=== PATIENT | female | born 1965 | race Caucasian/White ===

== ENCOUNTER 2017-08-26 22:36 | Emergency (ER) | payer MEDICARE, MEDICAID ==
[~2017-08-26] VITALS: Ht 175.3 cm; Wt 73.0 kg
[2017-08-26] MEDS ORDERED: MORP60CP14 PO (23:16)
[2017-08-26] MEDS ORDERED: METH-360 PO (23:39)
[2017-08-26] MEDS: diazepam 5mg tablet PO ONE (23:50)
[2017-08-26] MEDS: ketorolac tromethamine 15mg/ml inj. IM ONE (23:51)
[2017-08-27 00:04] VITALS: BP 142/80
== END 2017-08-27 00:12 | disposition home or self-care (01) ==
LOC: ER 22:36
DX: G89.29 Other chronic pain (principal); M54.2 Cervicalgia; G44.209 Tension-type headache, unspecified, not intractable; F17.200 Nicotine dependence, unspecified, uncomplicated; Z79.899 Other long term (current) drug therapy
CPT/HCPCS: 96372; 99284; J1885; L0172

== ENCOUNTER 2018-03-12 00:24 | Emergency (ER) | payer MEDICARE, MEDICAID ==
[~2018-03-12] VITALS: Ht 152.4 cm; Wt 77.2 kg
[~2018-03-12 00:24] MED LIST: METH-360 PO; MORP60CP14 PO
[2018-03-12] MEDS ORDERED: TETanus/Pertussis (Acell)/Diphther VAC/PF (Tdap-Adult) 0.5ml syringe IM ONE (00:55)
[2018-03-12] MEDS ORDERED: MUPI22OI30 TOP (00:55)
[2018-03-12] MEDS ORDERED: HYDROcodone/acetaminophen 10/325mg tab PO ONE (00:55)
[2018-03-12] MEDS ORDERED: ondansetron 4mg rapidly disintigrating tab PO ONE (00:55)
[2018-03-12] MEDS ORDERED: bacitracin 15gm ointment TP ONE (00:55)
[2018-03-12] MEDS ORDERED: ibuprofen tablet 400 MG TABLET PO ONE (00:55)
[2018-03-12] MEDS ORDERED: HYDR-3965 PO (00:56)
[2018-03-12] MEDS ORDERED: MELO-100 PO (00:56)
[2018-03-12 01:51] VITALS: BP 158/94
== END 2018-03-12 01:57 | disposition home or self-care (01) ==
LOC: ER 00:25
DX: T22.251A Burn of second degree of right shoulder, initial encounter (principal); T20.27XA Burn of second degree of neck, initial encounter; G89.29 Other chronic pain; Z79.2 Long term (current) use of antibiotics; Z79.899 Other long term (current) drug therapy; X19.XXXA Contact with other heat and hot substances, initial encounter; Y93.89 Activity, other specified; Y92.89 Other specified places as the place of occurrence of the external cause; Y99.8 Other external cause status
CPT/HCPCS: 16020; 90471; 90715; 99284

== ENCOUNTER 2018-11-21 00:42 | Emergency (ER) | payer MEDICARE, MEDICAID ==
[~2018-11-21] VITALS: Ht 175.3 cm; Wt 71.3 kg
[~2018-11-21 00:42] MED LIST changes: +ALBU6.7H INH; +CEPH-571 PO; +GUAI120015 PO; +MELO-100 PO
[2018-11-21] MEDS ORDERED: ketorolac trometh inj. 60 MG/2 ML VIAL IM ONE (02:20)
--- NOTE | 2018-11-21 02:34 | NUR ---
FAXED OVER RELEASE OF MEDICAL PAPPER WORK TO [facility] AT 02:33
[2018-11-21 03:31] VITALS: BP 140/93
== END 2018-11-21 05:26 | disposition home or self-care (01) ==
LOC: ER 00:43
DX: G89.29 Other chronic pain (principal); M54.9 Dorsalgia, unspecified; F17.200 Nicotine dependence, unspecified, uncomplicated; Z98.890 Other specified postprocedural states; Z79.899 Other long term (current) drug therapy
CPT/HCPCS: 96372; 99283; J1885

== ENCOUNTER → 2018-12-28 | Emergency (ER) | payer MEDICARE, MEDICAID ==
[~2018-12-28] VITALS: Ht 175.3 cm; Wt 86.0 kg
[2018-12-28 20:24] LABS: BASOPHILS % (AUTO) 0.4 % (0-1); EOSINOPHILS # (AUTO) 0.1 X10'3 (0-0.9); HEMATOCRIT 38.3 % (35.0-45.0); LYMPHOCYTES # (AUTO) 2.5 X10'3 (1.1-4.8); LYMPHOCYTES % (AUTO) 36.8 % (21-51); MEAN CORPUSCULAR HEMOGLOBIN 30.2 PG (27.0-31.0); MEAN CORPUSCULAR VOLUME 88.7 FL (78-98); MEAN PLATELET VOLUME 6.9 FL (7.4-10.4); MONOCYTES # (AUTO) 0.6 X10'3 (0-0.9); MONOCYTES % (AUTO) 8.5 % (2-12); NEUTROPHILS # (AUTO) 3.5 X10'3 (1.8-7.7); NEUTROPHILS % (AUTO) 52.3 % (42-75); PLATELET COUNT 336 X10'3 (140-440); RED BLOOD COUNT 4.32 X10'6 (4.20-5.60); WHITE BLOOD COUNT 6.7 X10'3 (4.5-11.0)
[2018-12-28 20:36] LABS: PARTIAL THROMBOPLASTIN TIME 29 SECONDS (22-32)
[2018-12-28 20:37] LABS: ALANINE AMINOTRANSFERASE 24 U/L (12-78); ALBUMIN 3.6 G/DL (3.4-5.0); ALBUMIN/GLOBULIN RATIO 0.9 (1.1-1.5); ALKALINE PHOSPHATASE 93 IU/L (46-116); ANION GAP 6 (8-16); ASPARTATE AMINO TRANSFERASE 20 U/L (10-37); BILIRUBIN,TOTAL 0.3 MG/DL (0.1-1.0); BLOOD UREA NITROGEN 11 MG/DL (7-18); BUN/CREATININE RATIO 12.8 (6.6-38.0); CHLORIDE 106 MMOL/L (99-107); CREATININE 0.86 MG/DL (0.40-0.90); GLUCOSE 103 MG/DL (70-104); POTASSIUM 4.4 MMOL/L (3.5-5.1); SODIUM 140 MMOL/L (135-145); TOTAL CARBON DIOXIDE 27.9 MMOL/L (24-32); TOTAL PROTEIN 7.6 G/DL (6.4-8.2); eGFR 69 ML/MIN
--- NOTE | 2018-12-28 21:07 | NUR ---
pt asking to go outside and visit with family. Advised her that she needed to wait in the room as we don't know when the MD will be in to see her. Asked if she would like me to have her family come to her in the room and she states, "no they are outside in the parking lot" -
[2018-12-28 23:37] VITALS: BP 160/92
== END | disposition left against medical advice (07) ==
LOC: ER 19:51
DX: R06.00 Dyspnea, unspecified (principal); R19.7 Diarrhea, unspecified; G89.29 Other chronic pain; L90.5 Scar conditions and fibrosis of skin; F17.200 Nicotine dependence, unspecified, uncomplicated; M54.2 Cervicalgia; Z79.2 Long term (current) use of antibiotics; Z79.899 Other long term (current) drug therapy; Z98.890 Other specified postprocedural states
CPT/HCPCS: 36415; 70491; 71045; 71260; 80053; 84484; 85025; 85610; 85730; 93005; 99284

== ENCOUNTER 2019-04-10 14:13 | Inpatient (IN) | payer MEDICARE, MEDICAID ==
[~2019-04-10] VITALS: Ht 175.3 cm; Wt 83.0 kg
[~2019-04-10 14:13] MED LIST changes: -ALBU6.7H INH; +ALBU6.7H9 INH
[2019-04-10] MEDS ORDERED: ondansetron/PF 4mg/2ml inj IV ONE (14:50)
[2019-04-10] MEDS ORDERED: morphine 4 MG/ML inj SYRINge IV ONE ×3 (14:50→16:05)
[2019-04-10 15:31] LABS: BASOPHILS % (AUTO) 0.2 % (0-1); EOSINOPHILS # (AUTO) 0.1 X10'3 (0-0.9); EOSINOPHILS % (AUTO) 0.8 % (0-6); HEMATOCRIT 40.4 % (35.0-45.0); HEMOGLOBIN 13.9 g/dl (12.0-16.0); LYMPHOCYTES # (AUTO) 2.9 X10'3 (1.1-4.8); LYMPHOCYTES % (AUTO) 27.8 % (21-51); MEAN CORPUSCULAR HEMOGLOBIN 30.8 PG (27.0-31.0); MEAN CORPUSCULAR HGB CONC 34.4 g/dL (33.0-36.5); MEAN CORPUSCULAR VOLUME 89.7 FL (78-98); MEAN PLATELET VOLUME 7.1 FL (7.4-10.4); MONOCYTES # (AUTO) 0.9 X10'3 (0-0.9); MONOCYTES % (AUTO) 8.4 % (2-12); NEUTROPHILS # (AUTO) 6.5 X10'3 (1.8-7.7); NEUTROPHILS % (AUTO) 62.8 % (42-75); PLATELET COUNT 330 X10'3 (140-440); RED CELL DISTRIBUTION WIDTH 13.5 % (11.5-14.5); WHITE BLOOD COUNT 10.4 X10'3 (4.5-11.0)
[2019-04-10 15:39] LABS: ALANINE AMINOTRANSFERASE 18 U/L (12-78); ALBUMIN 3.6 G/DL (3.4-5.0); ALBUMIN/GLOBULIN RATIO 0.9 (1.1-1.5); ALKALINE PHOSPHATASE 81 IU/L (46-116); ANION GAP 9 (8-16); ASPARTATE AMINO TRANSFERASE 11 U/L (10-37); BILIRUBIN,TOTAL 0.2 MG/DL (0.1-1.0); BLOOD UREA NITROGEN 13 MG/DL (7-18); BUN/CREATININE RATIO 16.5 (6.6-38.0); CALCIUM 8.9 MG/DL (8.5-10.1); CHLORIDE 105 MMOL/L (99-107); CREATININE 0.79 MG/DL (0.40-0.90); GLUCOSE 94 MG/DL (70-104); POTASSIUM 3.6 MMOL/L (3.5-5.1); SODIUM 141 MMOL/L (135-145); TOTAL CARBON DIOXIDE 26.8 MMOL/L (24-32); TOTAL PROTEIN 7.7 G/DL (6.4-8.2); eGFR 76 ML/MIN
[2019-04-10 15:42] LABS: PARTIAL THROMBOPLASTIN TIME 26 SECONDS (22-32)
[2019-04-10] MEDS ORDERED: HYDROcodone/acetaminophen 5mg/325mg tablet PO PRN (15:45)
[2019-04-10] MEDS ORDERED: acetaminophen 650mg rectal suppository RC PRN (15:45)
[2019-04-10] MEDS ORDERED: magnesium 4gm in 100ml NS 100 ML IV PRN (15:45)
[2019-04-10] MEDS ORDERED: potassium Cl 20 mEq SR tablet PO PRN ×2 (15:45)
[2019-04-10] MEDS ORDERED: mag hydrox/Alum hydrox/simeth 30ml oral suspension PO PRN (15:45)
[2019-04-10] MEDS ORDERED: bisacodyl 10mg suppository rectal RC PRN (15:45)
[2019-04-10] MEDS ORDERED: acetaminophen 325mg tablet PO PRN ×2 (15:45)
[2019-04-10] MEDS ORDERED: diphenhydrAMINE 25mg capsule PO PRN (15:45)
[2019-04-10] MEDS: K and/or MAG REPLACEMENT MC SCH (15:45)
[2019-04-10] MEDS ORDERED: morphine 2 MG/ML inj. syringe IV PRN ×2 (15:45)
[2019-04-10] MEDS ORDERED: magnesium 2GM in 50ml NS 50 ML IV PRN (15:45)
[2019-04-10] MEDS ORDERED: potassium CL 10mEq/100ml bag 100 ML IV PRN ×2 (15:45)
[2019-04-10] MEDS ORDERED: magnesium Cl slow-release 64mg tablet PO PRN (15:45)
[2019-04-10] MEDS ORDERED: magnesium hydroxide 30ml (MOM) UD suspension PO PRN (15:45)
[2019-04-10] MEDS ORDERED: diphenhydrAMINE 50 mg/ml inj IV PRN (15:45)
[2019-04-10 16:13] LABS: HEMOGLOBIN A1C 5.3 % (4.5-6.2)
--- NOTE | 2019-04-10 16:38 | NUR ---
Patient in room ED 12. I have received report from Payal in the ED and had the opportunity to ask questions and assume patient care.
[2019-04-10] MEDS: HYDROcodone/acetaminophen 10/325mg tab PO PRN ×2 (17:20→21:18)
--- NOTE | 2019-04-10 17:30 | NUR ---
Pt arrived on the floor, very painful
[2019-04-10 17:34] VITALS: BP 156/90
[2019-04-10] MEDS: HYDROmorphone 1 mg/ml syringe IV PRN ×3 (17:47→22:41)
[2019-04-10 18:00] VITALS: BP 156/90
[2019-04-10] MEDS ORDERED: OMEP20CA11 PO (18:06)
[2019-04-10] MEDS ORDERED: MORP15TA PO (18:06)
[2019-04-10] MEDS ORDERED: MORP60CA18 PO (18:06)
[2019-04-10] MEDS ORDERED: GABA-532 PO (18:06)
[2019-04-10] MEDS ORDERED: MELO-102 PO (18:06)
[2019-04-10] MEDS ORDERED: DULO-31 PO (18:06)
--- NOTE | 2019-04-10 18:29 | NUR ---
Problems reprioritized. Patient report given, questions answered & plan of care reviewed with Mary Alice.
--- NOTE | 2019-04-10 18:30 | NUR ---
Received report from Anastasia BEATTY. assumed care of patient.
[2019-04-10] MEDS: dextrose 5%-normal saline 1,000 ML IV SCH (18:59)
[2019-04-10] MEDS: heparin, porcine 5000 units/ml vial SQ SCH (19:43)
--- NOTE | 2019-04-10 20:00 | NUR ---
As I was darting patient, and taking inventory of patient's belongings found a box of cigarettes. Educated the patient and told her she could not have these on the floor. Charge nurse, Pallavi BEATTY, was notified. pt stated that son would come spanish moss picker the cigarettes in the morning. Placed the box in patients closet, on top shelf out of reach for the patient. will continue to monitor patient.
[2019-04-10] MEDS: ondansetron/PF 4mg/2ml inj IV PRN (20:44)
[2019-04-10] MEDS: nicotine 14mg patch - 24hr TD SCH (20:44)
[2019-04-10] MEDS ORDERED: temazepam 15mg capsule PO PRN (21:00)
[2019-04-10 22:00] VITALS: BP 130/85
[2019-04-11] VITALS (17 sets, daily range): BP systolic 79–135; BP diastolic 55–82
--- NOTE | 2019-04-11 | NUR ---
Bladder scanned patient. Only 250 ml in bladder. will continue to monitor patient.
[2019-04-11] MEDS: HYDROmorphone 1 mg/ml syringe IV PRN ×6 (00:13→23:09)
[2019-04-11] MEDS ORDERED: proCHLORperazine 10 MG/2 ml inj IV PRN ×2 (00:25→08:00)
--- NOTE | 2019-04-11 02:00 | NUR ---
Noticed 2 circular healing scabs on patients right collar bone, open to air. No drainage. present on admission. see chart for pictures.
[2019-04-11] MEDS: HYDROcodone/acetaminophen 10/325mg tab PO PRN ×2 (02:30→15:08)
[2019-04-11 03:16] LABS: CLARITY,URINE CLEAR (Clear); COLOR,URINE YELLOW (Yellow); GLUCOSE, URINE NEGATIVE (Neg); KETONES,URINE NEGATIVE (Neg); LEUKOCYTE ESTERASE ,URINE NEGATIVE (Neg); NITRITES, URINE NEGATIVE (Neg); OCCULT BLOOD,URINE NEGATIVE (Neg); PH,URINE 5.5 (4.8-8.0); PROTEIN,URINE NEGATIVE (Neg); UROBILINOGEN,URINE 0.2 E.U/dL (0.2-1.0)
[2019-04-11 03:20] LABS: UA COLLECTION TYPE FOLEY CATH
[2019-04-11 03:31] LABS: URINE AMPHETAMINE SCREEN NEGATIVE (Neg); URINE BARBITUATE SCREEN NEGATIVE (Neg); URINE BENZODIAZEPINES SCREEN NEGATIVE (Neg); URINE CANNABINOID SCREEN NEGATIVE (Neg); URINE COCAINE SCREEN NEGATIVE (Neg); URINE METHADONE SCREEN NEGATIVE (Neg); URINE OPIATE SCREEN POSITIVE (Neg); URINE PHENCYCLIDINE SCREEN NEGATIVE (Neg)
[2019-04-11] MEDS: dextrose 5%-normal saline 1,000 ML IV SCH ×2 (04:28→14:35)
[2019-04-11 05:19] LABS: URINE HCG NEGATIVE (NEG)
[2019-04-11 05:40] LABS: BASOPHILS % (AUTO) 0.1 % (0-1); EOSINOPHILS % (AUTO) 0.5 % (0-6); HEMATOCRIT 35.8 % (35.0-45.0); HEMOGLOBIN 12.5 g/dl (12.0-16.0); LYMPHOCYTES % (AUTO) 22.4 % (21-51); MEAN CORPUSCULAR HEMOGLOBIN 31.8 PG (27.0-31.0); MEAN CORPUSCULAR HGB CONC 34.8 g/dL (33.0-36.5); MEAN CORPUSCULAR VOLUME 91.6 FL (78-98); MEAN PLATELET VOLUME 7.4 FL (7.4-10.4); MONOCYTES # (AUTO) 0.8 X10'3 (0-0.9); MONOCYTES % (AUTO) 8.9 % (2-12); NEUTROPHILS # (AUTO) 5.9 X10'3 (1.8-7.7); NEUTROPHILS % (AUTO) 68.1 % (42-75); PLATELET COUNT 285 X10'3 (140-440); RED BLOOD COUNT 3.91 X10'6 (4.20-5.60); RED CELL DISTRIBUTION WIDTH 13.6 % (11.5-14.5); WHITE BLOOD COUNT 8.7 X10'3 (4.5-11.0)
[2019-04-11 06:06] LABS: ALANINE AMINOTRANSFERASE 15 U/L (12-78); ALBUMIN 3.5 G/DL (3.4-5.0); ALKALINE PHOSPHATASE 77 IU/L (46-116); ANION GAP 6 (8-16); ASPARTATE AMINO TRANSFERASE 12 U/L (10-37); BILIRUBIN,TOTAL 0.4 MG/DL (0.1-1.0); BLOOD UREA NITROGEN 13 MG/DL (7-18); BUN/CREATININE RATIO 17.8 (6.6-38.0); CALCIUM 9.3 MG/DL (8.5-10.1); CHLORIDE 103 MMOL/L (99-107); CHOL/HDL RATIO 3.3 (0.00-4.99); CHOLESTEROL 149 MG/DL (0-200); CREATININE 0.73 MG/DL (0.40-0.90); GLUCOSE 114 MG/DL (70-104); HDL CHOLESTEROL 45 MG/DL (35-60); LDL CHOLESTEROL 97 MG/DL (50-100); MAGNESIUM 1.9 MG/DL (1.5-2.4); PHOSPHORUS 4.4 MG/DL (2.3-4.5); POTASSIUM 3.8 MMOL/L (3.5-5.1); SODIUM 138 MMOL/L (135-145); TOTAL CARBON DIOXIDE 28.6 MMOL/L (24-32); TOTAL PROTEIN 7.1 G/DL (6.4-8.2); TRIGLYCERIDES 87 MG/DL (20-135); eGFR 83 ML/MIN
--- NOTE | 2019-04-11 06:22 | NUR ---
Gave report to Smita BEATTY.
[2019-04-11] MEDS: ondansetron/PF 4mg/2ml inj IV PRN ×3 (07:22→19:40)
[2019-04-11] MEDS: nicotine 14mg patch - 24hr TD SCH (07:22)
[2019-04-11] MEDS: K and/or MAG REPLACEMENT MC SCH (07:24)
[2019-04-11] MEDS: duloxetine 30mg CAPSULE.DR PO SCH ×2 (07:24→19:39)
[2019-04-11] MEDS: gabapentin 300mg capsule PO SCH (07:24)
[2019-04-11] MEDS: pantoprazole 40mg Tablet.DR PO SCH ×2 (07:25→19:39)
[2019-04-11] MEDS: heparin, porcine 5000 units/ml vial SQ SCH ×2 (07:25→19:40)
[2019-04-11] MEDS ORDERED: BUPIVAcaine/PF 2.5 mg/ml (0.25%) 30ml vial ONE (07:49)
[2019-04-11] MEDS ORDERED: ceFAZolin 1000mg inj ONE ×3 (07:49→08:26)
[2019-04-11] MEDS ORDERED: tetracaine 1% (10mg/ml) pres. free inj. ONE (07:58)
[2019-04-11] MEDS ORDERED: cloNIDine hcl/PF 100mcg/ml inj ONE (07:58)
[2019-04-11] MEDS ORDERED: meperidine/PF 25mg/ml syringe IV PRN ×3 (08:00)
[2019-04-11] MEDS ORDERED: ringers solution, lacted 1,000 ML IV SCH (08:00)
[2019-04-11] MEDS ORDERED: ondansetron/PF 4mg/2ml inj IV PRN (08:00)
[2019-04-11] MEDS ORDERED: morphine 4 MG/ML inj SYRINge IV PRN ×2 (08:00)
[2019-04-11] MEDS ORDERED: ondansetron/PF 4mg/2ml inj ONE (08:01)
[2019-04-11] MEDS ORDERED: fentaNYL/PF 50MCG/1 ML 2ML syringe ONE (08:04)
[2019-04-11] MEDS ORDERED: MIDAZolam 5mg/5ml vial ONE (08:04)
[2019-04-11] MEDS ORDERED: ROPIVAcaine 0.5% (5mg/ml) 30ml vial ONE (09:17)
--- NOTE | 2019-04-11 09:45 | NUR ---
Received from OR via BED, accompanied by Anesthesiologist MERCEDES and report given by Anesthesiolgist. PT SLEEPY, OXYGENATING WELL ON 3 LPM O2 VIA NC, NO RESP DISTRESS NOTED. PT DENIES NAUSEA, NO C/O PAIN AT THIS TIME. HAD SAB AND L ACB, NO MOVEMENT OR SENSATION FROM UMBILICUS DOWN. TOES ON L FOOT ARE P/W/D. SPLINT TO LLE FROM KNEE TO TOES, COVERED IN [place]. CDI. FC PATENT. VSS, SOME HYPOTENSION R/T SAB, WILL CONTINUE TO MONITOR.
--- NOTE | 2019-04-11 10:25 | NUR ---
ICE BAG PLACED TO FRONT OF LEFT CALF PER DR BILLS ORDERS
--- NOTE | 2019-04-11 10:45 | NUR ---
Report called to receiving nurse. Transferred via BED Belongings IN PT ROOM. NO C/O PAIN, VSS. DR LONG SAYS OK FOR PT TO TRANSFER TO FLOOR WITH SYSTOLIC BP IN 90'S SHE IS STABLE. TOLERATING SIPS OF WATER. TRANSFERRED BACK TO ORTHO FLOOR IN STABLE CONDITION. Special Issues communicated to receiving nurse.
[2019-04-11] MEDS ORDERED: MSC30T PO (14:36)
[2019-04-11] MEDS ORDERED: ketorolac trometh. 30mg/ml inj. IV ONE (15:00)
[2019-04-11] MEDS: ceFAZolin 1GM/D5W- ADD-VANTAGE 50 ML IV SCH ×2 (15:09→23:23)
--- NOTE | 2019-04-11 18:15 | NUR ---
Received report from JACI Ordoñez. Assumed pt care.
[2019-04-11] MEDS: morphine ER 30mg tablet PO SCH (19:39)
[2019-04-11] MEDS: morphine 10mg/0.5ml (conc. morphine) oral syringe PO SCH (19:41)
[2019-04-12] MEDS: dextrose 5%-normal saline 1,000 ML IV SCH ×2 (00:34→10:35)
[2019-04-12 02:00] VITALS: BP 144/80
[2019-04-12] MEDS: HYDROcodone/acetaminophen 10/325mg tab PO PRN (02:45)
[2019-04-12] MEDS: HYDROmorphone 1 mg/ml syringe IV PRN (04:37)
--- NOTE | 2019-04-12 06:14 | NUR ---
Report given, questions answered and plan of care reviewed with JACI Ordoñez.
[2019-04-12 06:23] VITALS: BP 143/85
[2019-04-12 06:39] LABS: BASOPHILS % (AUTO) 0.1 % (0-1); EOSINOPHILS % (AUTO) 0.4 % (0-6); HEMOGLOBIN 10.3 g/dl (12.0-16.0); LYMPHOCYTES # (AUTO) 2.2 X10'3 (1.1-4.8); LYMPHOCYTES % (AUTO) 26.6 % (21-51); MEAN CORPUSCULAR HEMOGLOBIN 31.2 PG (27.0-31.0); MEAN CORPUSCULAR HGB CONC 34.3 g/dL (33.0-36.5); MEAN PLATELET VOLUME 7.4 FL (7.4-10.4); MONOCYTES # (AUTO) 0.9 X10'3 (0-0.9); MONOCYTES % (AUTO) 11.3 % (2-12); NEUTROPHILS # (AUTO) 5.1 X10'3 (1.8-7.7); NEUTROPHILS % (AUTO) 61.6 % (42-75); PLATELET COUNT 224 X10'3 (140-440); RED CELL DISTRIBUTION WIDTH 13.2 % (11.5-14.5); WHITE BLOOD COUNT 8.2 X10'3 (4.5-11.0)
[2019-04-12 07:12] LABS: ALANINE AMINOTRANSFERASE 14 U/L (12-78); ALBUMIN 2.9 G/DL (3.4-5.0); ALBUMIN/GLOBULIN RATIO 0.8 (1.1-1.5); ALKALINE PHOSPHATASE 66 IU/L (46-116); ANION GAP 7 (8-16); ASPARTATE AMINO TRANSFERASE 17 U/L (10-37); BILIRUBIN,TOTAL 0.4 MG/DL (0.1-1.0); BLOOD UREA NITROGEN 10 MG/DL (7-18); BUN/CREATININE RATIO 16.4 (6.6-38.0); CALCIUM 8.7 MG/DL (8.5-10.1); CHLORIDE 102 MMOL/L (99-107); CREATININE 0.61 MG/DL (0.40-0.90); GLUCOSE 112 MG/DL (70-104); MAGNESIUM 1.7 MG/DL (1.5-2.4); PHOSPHORUS 3.3 MG/DL (2.3-4.5); POTASSIUM 3.8 MMOL/L (3.5-5.1); SODIUM 135 MMOL/L (135-145); TOTAL CARBON DIOXIDE 26.3 MMOL/L (24-32); TOTAL PROTEIN 6.4 G/DL (6.4-8.2); eGFR > 90 ML/MIN
[2019-04-12] MEDS: K and/or MAG REPLACEMENT MC SCH (07:33)
[2019-04-12 07:47] VITALS: BP 144/79
[2019-04-12] MEDS: ceFAZolin 1GM/D5W- ADD-VANTAGE 50 ML IV SCH (07:47)
[2019-04-12] MEDS: ondansetron/PF 4mg/2ml inj IV PRN (07:47)
[2019-04-12] MEDS: heparin, porcine 5000 units/ml vial SQ SCH (08:00)
[2019-04-12] MEDS: gabapentin 300mg capsule PO SCH (08:09)
[2019-04-12] MEDS: duloxetine 30mg CAPSULE.DR PO SCH (08:10)
[2019-04-12] MEDS: pantoprazole 40mg Tablet.DR PO SCH (08:11)
[2019-04-12] MEDS: morphine ER 30mg tablet PO SCH (08:11)
[2019-04-12] MEDS: morphine 10mg/0.5ml (conc. morphine) oral syringe PO SCH (08:21)
[2019-04-12] MEDS: nicotine 14mg patch - 24hr TD SCH (08:23)
--- NOTE | 2019-04-12 10:52 | NUR ---
Student Medication Administration:For this medication-pass time frame [id number], all medications were reviewed, administered and documented per hospital policy by Yoana Powell. Student documentation:I have reviewed and agree with all interventions, assessments performed and documented by Yoana Powell.
[2019-04-12] MEDS ORDERED: CEPH250T PO (21:43)
== END 2019-04-12 10:50 | disposition home health service (06) | DRG 494 ==
LOC: ER 14:13 → ED HOLD 15:44 → ORTHO 4S 17:17
PROVIDERS: ADMIT Family Medicine; ATTEND Family Medicine
PROC: 3E0T3BZ Introduction of Anesthetic Agent into Peripheral Nerves and Plexi, Percutaneous Approach (ICD-10-PCS; 2019-04-11)
PROC: 0QSH06Z Reposition Left Tibia with Intramedullary Internal Fixation Device, Open Approach (ICD-10-PCS; principal; 2019-04-11 08:01)
DX: S82.242A Displaced spiral fracture of shaft of left tibia, initial encounter for closed fracture (principal); S82.442A Displaced spiral fracture of shaft of left fibula, initial encounter for closed fracture; F17.210 Nicotine dependence, cigarettes, uncomplicated; J44.9 Chronic obstructive pulmonary disease, unspecified; W17.89XA Other fall from one level to another, initial encounter; G89.4 Chronic pain syndrome; M54.9 Dorsalgia, unspecified; Z98.1 Arthrodesis status; Z90.49 Acquired absence of other specified parts of digestive tract; Z98.51 Tubal ligation status; Z71.6 Tobacco abuse counseling; Y93.89 Activity, other specified; Y92.89 Other specified places as the place of occurrence of the external cause; Y99.8 Other external cause status; Z79.899 Other long term (current) drug therapy
CPT/HCPCS: 36415; 71045; 73590; 76000; 80053; 80061; 80305; 81003; 81025; 83036; 83735; 84100; 85025; 85610; 85730; 86885; 86900; 86901; 87081; 93005; 96374; 96375; 97110; 97116; 97161; 97530; 99285; A4215; A6449; A7000; C1713; G0378; J0690; J0735; J0780; J1170; J1644; J1885; J2250; J2270; J2405; J2795; J3010; J3490; J7042; J7120

== ENCOUNTER 2019-04-12 21:13 | Emergency (ER) | payer MEDICARE, MEDICAID ==
[~2019-04-12] VITALS: Ht 175.3 cm; Wt 81.8 kg
[~2019-04-12 21:13] MED LIST changes: -ALBU6.7H9 INH; -CEPH-571 PO; +DULO-31 PO; +GABA-532 PO; -GUAI120015 PO; -MELO-100 PO; +MELO-102 PO; -METH-360 PO; +MORP15TA PO; -MORP60CP14 PO; +MSC30T PO; +OMEP20CA11 PO
[2019-04-12 21:16] VITALS: BP 146/77
[2019-04-12] MEDS ORDERED: HYDROcodone/acetaminophen 10/325mg tab PO ONE (21:35)
[2019-04-12] MEDS ORDERED: CEPH250T PO (21:43)
--- NOTE | 2019-04-12 21:51 | NUR ---
helped [place] in dressing up pt .pt post op dressing not removed completly clean her wound site with cholorhexidine steristrip applied with xerform on top of it then covered with 4x4 guaze applied deya wrap on top of it .
== END 2019-04-12 21:54 | disposition home or self-care (01) ==
LOC: ER 21:14
DX: T81.30XA Disruption of wound, unspecified, initial encounter (principal); G89.29 Other chronic pain; Z79.899 Other long term (current) drug therapy; Z79.2 Long term (current) use of antibiotics; Z98.890 Other specified postprocedural states; Y92.89 Other specified places as the place of occurrence of the external cause
CPT/HCPCS: 99283

== ENCOUNTER 2019-04-28 13:54 | Outpatient (CLI) | payer MEDICARE, MEDICAID | END 2019-04-28 23:59 | disposition home or self-care (01) | LOC: RAD 13:54 | PROVIDERS: ATTEND Internal Medicine Gastroenterology | DX: R13.14 Dysphagia, pharyngoesophageal phase (principal); K21.9 Gastro-esophageal reflux disease without esophagitis; F17.210 Nicotine dependence, cigarettes, uncomplicated; Z79.899 Other long term (current) drug therapy | CPT/HCPCS: 74230 ==

== ENCOUNTER 2020-05-15 07:15 | Day surgery (SDC) | payer MEDICARE, MEDICAID ==
[2020-05-10 11:45] LABS: BASOPHILS % (AUTO) 0.7 % (0-1); EOSINOPHILS # (AUTO) 0.1 X10'3 (0-0.9); EOSINOPHILS % (AUTO) 1.1 % (0-6); LYMPHOCYTES # (AUTO) 1.4 X10'3 (1.1-4.8); MEAN CORPUSCULAR HGB CONC 34.3 g/dL (33.0-36.5); MEAN CORPUSCULAR VOLUME 90.4 FL (78-98); MEAN PLATELET VOLUME 7.4 FL (7.4-10.4); MONOCYTES # (AUTO) 0.3 X10'3 (0-0.9); MONOCYTES % (AUTO) 5.6 % (2-12); NEUTROPHILS # (AUTO) 3.9 X10'3 (1.8-7.7); NEUTROPHILS % (AUTO) 67.6 % (42-75); PRE OP HEMOGLOBIN 14.4 g/dL (12.0-16.0); PRE OP PLATELET COUNT 301 X10'3 (140-440); RED BLOOD COUNT 4.65 X10'6 (4.20-5.60); RED CELL DISTRIBUTION WIDTH 13.3 % (11.5-14.5)
[2020-05-10 12:01] LABS: ALBUMIN 3.7 G/DL (3.4-5.0); ALBUMIN/GLOBULIN RATIO 0.9 (1.1-1.5); ALKALINE PHOSPHATASE 106 IU/L (46-116); BLOOD UREA NITROGEN 10 MG/DL (7-18); BUN/CREATININE RATIO 12.3 (6.6-38.0); CALCIUM 9.1 MG/DL (8.5-10.1); CHLORIDE 105 MMOL/L (99-107); CREATININE 0.81 MG/DL (0.40-0.90); PRE OP ALT 20 U/L (30-65); PRE OP ANION GAP 9 (8-16); PRE OP AST 14 U/L (10-37); PRE OP BILIRUB, TOTAL 0.4 MG/DL (0.0-1.0); PRE OP GLUCOSE 104 MG/DL (70-104); PRE OP POTASSIUM 4.1 MMOL/L (3.4-5.1); PRE OP SODIUM 140 MMOL/L (135-145); TOTAL CARBON DIOXIDE 26.3 MMOL/L (24-32); TOTAL PROTEIN 7.6 G/DL (6.4-8.2); eGFR 73 ML/MIN
[2020-05-15] VITALS (7 sets, daily range): BP systolic 131–162; BP diastolic 79–99
[~2020-05-15] VITALS: Ht 175.3 cm; Wt 90.3 kg
[~2020-05-15 07:15] MED LIST changes: +BUPIVAcaine/PF 2.5 mg/ml (0.25%) 30ml vial ONE; -MELO-102 PO; -OMEP20CA11 PO; +ceFAZolin 2gm in dextrose, iso 50 ML IV ONE; +famotidine 20mg tablet PO ONE; +ringers solution, lacted 1,000 ML IV SCH
[2020-05-15] MEDS ORDERED: ringers solution, lacted 1,000 ML IV SCH (10:10)
[2020-05-15] MEDS ORDERED: ondansetron/PF 4mg/2ml inj IV PRN (10:10)
[2020-05-15] MEDS ORDERED: proCHLORperazine 10 MG/2 ml inj IV PRN (10:10)
[2020-05-15] MEDS ORDERED: morphine 2 MG/ML inj. syringe IV PRN (10:10)
[2020-05-15] MEDS ORDERED: meperidine/PF 25mg/ml syringe IV PRN ×2 (10:10)
[2020-05-15] MEDS ORDERED: morphine 4 MG/ML inj SYRINge IV PRN (10:10)
[2020-05-15] MEDS ORDERED: fentaNYL/PF 50MCG/1 ML 2ML syringe ONE ×2 (10:46→11:02)
[2020-05-15] MEDS ORDERED: propofol inj 20 ML IV ONE (10:47)
[2020-05-15] MEDS ORDERED: sevoflurane 250ml liquid IH ONE (10:47)
[2020-05-15] MEDS ORDERED: midazolam 2 mg/2 ml injection ONE (10:47)
[2020-05-15] MEDS ORDERED: dexamethasone sod phosphate 4mg/ml inj. ONE (10:55)
[2020-05-15] MEDS ORDERED: ondansetron/PF 4mg/2ml inj ONE (11:34)
--- NOTE | 2020-05-15 11:45 | NUR ---
Received from OR via BED, accompanied by Anesthesiologist DR LONG and report given by Anesthesiolgist. PATIENT A&OX4, DENIES PAIN, V/S WNL, NEUROVASCULAR CHECKS INTACT, 20G PIV LUE, SCD ON, DRESSING TO LEFT LEG CDI ELEVATED WITH ICEBAG APPLIED.
[2020-05-15] MEDS: meperidine/PF 25mg/ml syringe IV PRN ×2 (11:46→11:58)
--- NOTE | 2020-05-15 12:35 | NUR ---
PATIENT A&OX4, DENIES PAIN, V/S WNL, NEUROVASCULAR CHECKS INTACT, 20G PIV LUE D/C, SCD OFF, DRESSING TO LEFT LEG CDI ELEVATED WITH ICEBAG APPLIED. I HAVE REVIEWED D/C INSTRUCTIONS WITH PATIENT AND FAMILY AND THEY HAVE VERBALIZED UNDERSTANDING. PATIENT D/C HOME WITH ALL BELONGINGS AND FAMILY GAVE TRANSPORT HOME.PATIENT OFFERED MASK BUT REFUSED TO WEAR IT AT UPON D/C.
== END 2020-05-15 12:35 | disposition home or self-care (01) ==
LOC: PAS 07:15
PROVIDERS: ATTEND Orthopaedic Surgery Hand Surgery
DX: T84.84XA Pain due to internal orthopedic prosthetic devices, implants and grafts, initial encounter (principal); M19.011 Primary osteoarthritis, right shoulder; G47.00 Insomnia, unspecified; F17.210 Nicotine dependence, cigarettes, uncomplicated; G89.29 Other chronic pain; G62.9 Polyneuropathy, unspecified; E66.9 Obesity, unspecified; Z68.29 Body mass index [BMI] 29.0-29.9, adult; Z90.49 Acquired absence of other specified parts of digestive tract; Z98.1 Arthrodesis status; Z98.890 Other specified postprocedural states; Z79.899 Other long term (current) drug therapy; Z20.828 Contact with and (suspected) exposure to other viral communicable diseases; Y83.8 Other surgical procedures as the cause of abnormal reaction of the patient, or of later complication, without mention of misadventure at the time of the procedure; Y92.89 Other specified places as the place of occurrence of the external cause
CPT/HCPCS: 20680; 36415; 80053; 82948; 85025; 87635; 93005; A6222; J1100; J2175; J2250; J2270; J2405; J2704; J3010; J3490; J7120; A4215; A4618; A6446; A6449; A7000

== ENCOUNTER 2020-05-21 08:39 | Emergency (ER) | payer MEDICARE, MEDICAID ==
[~2020-05-21] VITALS: Ht 175.3 cm; Wt 86.4 kg
[~2020-05-21 08:39] MED LIST changes: -BUPIVAcaine/PF 2.5 mg/ml (0.25%) 30ml vial ONE; -ceFAZolin 2gm in dextrose, iso 50 ML IV ONE; -famotidine 20mg tablet PO ONE; -ringers solution, lacted 1,000 ML IV SCH
[2020-05-21] MEDS ORDERED: ondansetron 4mg rapidly disintigrating tab PO ONE (09:15)
--- NOTE | 2020-05-21 09:29 | NUR ---
PT STATES SHE HASN'T HAD ANY FOOD TODAY
--- NOTE | 2020-05-21 09:33 | NUR ---
NURSING SUPP CALLED, PT GOING TO SURGERY AT [address] CHAUDHRY HAS REQUESTED THAT PT BE COVID TESTED. PROVIDER AND PT'S RN NOTIFIED
[2020-05-21] MEDS ORDERED: morphine 4 MG/ML inj SYRINge IV ONE (09:40)
[2020-05-21] MEDS ORDERED: ondansetron/PF 4mg/2ml inj IV ONE (09:40)
[2020-05-21] MEDS ORDERED: GABA600T13 PO (10:11)
[2020-05-21] MEDS ORDERED: MORP30TA PO (10:13)
[2020-05-21] MEDS ORDERED: MEMA5TAB PO (10:13)
[2020-05-21] MEDS ORDERED: VOLTAREN GEL TOP (10:14)
--- NOTE | 2020-05-21 10:48 | NUR ---
spoke with Nurse Pool in pre op about the pt and treatments prior to going to the OR. EKG ordered and will connect pt to IVF.
[2020-05-21] MEDS ORDERED: BUPIVAcaine/PF 2.5 mg/ml (0.25%) 30ml vial ONE (11:11)
[2020-05-21] MEDS ORDERED: sevoflurane 250ml liquid IH ONE (11:32)
[2020-05-21] MEDS ORDERED: fentaNYL/PF 50MCG/1 ML 2ML syringe ONE (11:33)
[2020-05-21] MEDS ORDERED: midazolam 2 mg/2 ml injection ONE (11:33)
[2020-05-21] MEDS ORDERED: ringers solution, lacted 1,000 ML IV SCH (11:50)
[2020-05-21] MEDS ORDERED: morphine 2 MG/ML inj. syringe IV PRN (11:50)
[2020-05-21] MEDS ORDERED: proCHLORperazine 10 MG/2 ml inj IV PRN (11:50)
[2020-05-21] MEDS ORDERED: ondansetron/PF 4mg/2ml inj IV PRN (11:50)
[2020-05-21] MEDS ORDERED: meperidine/PF 25mg/ml syringe IV PRN ×3 (11:50)
[2020-05-21] MEDS ORDERED: morphine 4 MG/ML inj SYRINge IV PRN (11:50)
[2020-05-21] MEDS ORDERED: ceFAZolin 1000mg inj ONE ×2 (11:58)
[2020-05-21] MEDS ORDERED: propofol inj 20 ML IV ONE (11:59)
[2020-05-21] MEDS ORDERED: vancomycin 1,000mg inj ONE (11:59)
[2020-05-21 12:25] VITALS: BP 150/91
--- NOTE | 2020-05-21 12:25 | NUR ---
Received from OR via BED, accompanied by Anesthesiologist DR LESLIE and report given by Anesthesiolgist. PATIENT A&OX4, DENIES PAIN, V/S WNL, NEUROVASCULAR CHECKS INTACT, SCD ON, LEFT KNEE DRESSING CDI ELEVATED WITH ICE BAG APPLIED. 20G RUE.
[2020-05-21 12:35] VITALS: BP 149/89
[2020-05-21 12:45] VITALS: BP 144/82
[2020-05-21 12:55] VITALS: BP 139/79
[2020-05-21 13:05] VITALS: BP 134/76
--- NOTE | 2020-05-21 13:05 | NUR ---
PATIENT A&OX4, DENIES PAIN, V/S WNL, NEUROVASCULAR CHECKS INTACT, SCD OFF, LEFT KNEE DRESSING CDI ELEVATED WITH ICE BAG APPLIED.ABX COMPLETED INFUION. 20G RUE D/C. ABX AND PAIN MEDS ESCRIBED TO PATIENTS PHARMACY. I HAVE REVIEWED D/C INSTRUCTIONS WITH PATIENT AND SHE HAS VERBALIZED UNDERSTANDING AND PATIENT D/C HOME WITH FAMILY AND ALL BELONGINGS
== END 2020-05-21 13:05 | disposition home or self-care (01) ==
LOC: ER 08:41
DX: L76.82 Other postprocedural complications of skin and subcutaneous tissue (principal); Z20.828 Contact with and (suspected) exposure to other viral communicable diseases; G89.29 Other chronic pain; Z98.890 Other specified postprocedural states; Z79.899 Other long term (current) drug therapy
CPT/HCPCS: 12020; 87635; 93005; 96374; 99285; A6222; C9803; J0690; J2250; J2270; J2704; J3010; J3370; J3490; J7030; J7050; 96365; 96375; 99284; A4215; A4618; A6446; A6449; A7000

== ENCOUNTER 2022-01-10 00:48 | Emergency (ER) | payer MEDICARE, MEDICAID ==
[~2022-01-10] VITALS: Ht 175.3 cm; Wt 94.5 kg
[~2022-01-10 00:48] MED LIST changes: -DULO-31 PO; -GABA-532 PO; +GABA600T13 PO; +MEMA5TAB PO; -MORP15TA PO; +MORP30TA PO; +VOLTAREN GEL TOP
[2022-01-10 00:53] VITALS: BP 184/103
== END 2022-01-10 06:12 | disposition left against medical advice (07) ==
LOC: ER 00:48
DX: Z04.1 Encounter for examination and observation following transport accident (principal); Z53.21 Procedure and treatment not carried out due to patient leaving prior to being seen by health care provider
CPT/HCPCS: 72040; 73030; 73080; L0172

== ENCOUNTER 2022-10-18 17:15 | Emergency (ER) | payer OTHER, MEDICAID ==
[~2022-10-18] VITALS: Ht 175.3 cm; Wt 90.0 kg
[2022-10-18 17:49] VITALS: BP 127/78
== END 2022-10-18 22:25 | disposition home or self-care (01) ==
LOC: ER 17:50
DX: G89.29 Other chronic pain (principal); M54.9 Dorsalgia, unspecified; Z79.899 Other long term (current) drug therapy
CPT/HCPCS: 72148; 99284

== ENCOUNTER 2024-08-02 16:51 | Emergency (ER) | payer MEDICARE, MEDICAID ==
[~2024-08-02] VITALS: Ht 175.3 cm; Wt 96.2 kg
[~2024-08-02 16:51] MED LIST changes: +GABA-1405 PO; -GABA600T13 PO
[2024-08-02 19:22] VITALS: BP 146/97; PULSE 71; TEMP 97.4; O2SAT 99
[2024-08-02 19:23] VITALS: RESP 15
[2024-08-02] MEDS: ketorolac trometh 30MG/ML vial 30 MG/ML VIAL IM ONE (20:10)
== END 2024-08-02 20:27 | disposition left against medical advice (07) ==
LOC: ER 16:51
DX: S40.021A Contusion of right upper arm, initial encounter (principal); Z20.822 Contact with and (suspected) exposure to COVID-19; W19.XXXA Unspecified fall, initial encounter; Y93.89 Activity, other specified; Y92.89 Other specified places as the place of occurrence of the external cause; Y99.8 Other external cause status
CPT/HCPCS: 71045; 72125; 72131; 72141; 72146; 99284

== ENCOUNTER 2025-06-01 22:19 | Emergency (ER) | payer MEDICARE, MEDICAID ==
[~2025-06-01] VITALS: Ht 175.3 cm; Wt 101.3 kg
--- NOTE | 2025-06-01 23:11 | ELECTROCARDIOGRAPH REPORT ---
[facility] Test Date: 2025-06-01 Test Time: 23:10:46 Pat Name: AUGUSTIN ELLIOTT Department: [facility]- Patient ID: [facility]-[id number] Room: Gender: F Purchasing Analyst: SALONI : 1965 Requested By: MIKA JUAREZ Order Number: [id number] Reading MD: Dr. Alonzo Humphrey Measurements Intervals [place] Rate: 77 P: 61 MD: 162 QRS: 80 QRSD: 94 T: 77 QT: 376 QTc: 426 Interpretive Statements Sinus rhythm Electronically Signed On 06-02-2025 0:19:[address] Alonzo Humphrey Please click the below link to view image of tracing.
[2025-06-01 23:17] LABS: MEAN PLATELET VOLUME 7.0 FL (7.4-10.4); RED CELL DISTRIBUTION WIDTH 13.0 % (11.5-14.5)
[2025-06-01 23:44] LABS: CREATININE 0.91 MG/DL (0.40-0.90); PRO BRAIN NATRIURETIC PEPTIDE 93 PG/ML (0-125); TOTAL CARBON DIOXIDE 30.3 MMOL/L (24-32); eCRCL 69 ML/MIN; eGFR 63 ML/MIN
--- NOTE | 2025-06-02 00:18 | RADIOLOGY REPORT ---
CHEST RADIOGRAPH INDICATION: CP TECHNIQUE: Single frontal view of the chest was obtained COMPARISON: DI CHEST,SINGLE VIEW on DOS: 08/02/24 FINDINGS: Lines and Tubes: None Lungs: Clear Pleura: No effusion. No pneumothorax. Cardiomediastinal contours: Unremarkable Bones: Unremarkable. ACDF hardware. IMPRESSION: 1. No radiographic evidence of acute cardiopulmonary abnormality.
--- NOTE | 2025-06-02 01:54 | Physician Documentation ---
History of Present Illness ~ Chief Complaint: Chest Wall Pain Stated Complaint: LUNG PAIN Time Seen by MD: 01:50 OK to notify your PCP?: Yes [facility] patient Exam Limitations: no limitations HPI Patient has been complaining of severe right-sided chest pain 1st it was size of a golf ball then baseball now the whole side of the right lower ribs seemed to be hurting also from the back. She denies any spinal complaints. She denies any shortness of breath but it does hurt to breathe. Patient has a history of chronic pain and takes high dose narcotics. She has been taking 800 mg of Motrin for about 11 days or so without any relief states it is getting difficult to just breathe. She denies any air hunger. Denies fevers or chills or phlegm. She is now here for evaluation and care. Tetanus within 5 Years?: Yes Allergies: Coded Allergies: No Known Allergies (Unverified , 08/02/24) Active Prescriptions See Medication Reconciliation Form. Medication Reconciliation Scheduled Cyclobenzaprine* (Cyclobenzaprine*), 1 TAB PO HS Gabapentin (Gabapentin), 1 TAB PO Q6H, (Reported) Memantine Hcl* (Namenda*), 2 TAB PO BID, (Reported) Morphine Sulfate (MS CONTIN tablet), 1 TAB PO BID, (Reported) Morphine Sulfate Tab* (Morphine Tab*), 15 MG PO TID, (Reported) [Voltaren Gel], 1 APPLIC TOP 5XD, (Reported) Past Medical History Past Medical History: Chronic Pain, Chronic Back Pain, Extremity Fracture Past Surgical History: orthopedic surgeries, other Other Past Surgical History: Spinal Surgeries Alcohol Use: None Drug Use: none Lives with: Family Lives In: Home Occupation: disabled Review of Systems All Other Systems at this time: Reviewed and Negative Physical Exam Vital Signs: RN Vital Signs have been reviewed: Yes, Temperature: 98.6, Source: Oral, Heart Rate: 70, Respiratory Rate: 16, BP: 129/74, Pulse Oximetry: 94, Weight: 101.300 Oxygen Flow Rate: 0 Physical Exam General: The patient is well developed, well nourished, nontoxic appearing and is in mild acute distress. Skin: [place], warm and dry with no rashes. HEENT: Head was normocephalic and atraumatic. Eyes - pupils equal, round, reactive to light and accommodation. Extraocular movements were intact. Conjunctivae were nonicteric. Ears - bilateral tympanic membranes were normal. The mouth and oropharynx were clear with moist mucous membranes. There were no pharyngeal exudates or erythema. Neck: Supple and nontender. There was no jugular venous distention, lymphadenopathy, thyromegaly or masses. Chest: Clear to auscultation bilaterally without wheezes, rales or rhonchi. No accessory muscle use. No dullness to percussion. Pain in the right lower anterior lateral ribcage Heart: Rate regular and rhythmic. S1, S2. No murmurs. Palpation of the chest wall was normal. No rubs or thrills. Abdomen: Soft, nontender and nondistended. Positive bowel sounds. No guarding or rebound. No hepatosplenomegaly or palpable masses. Back: No midline or paraspinal tenderness. Extremities: No cyanosis, clubbing or edema. The patient moves all extremities. Pulses were equal and symmetric. Neurologic: Motor sensory grossly intact Psychologic: The patient was oriented to person, place and time. The patient demonstrated appropriate judgement and insight. Progress Results/Orders Reviewed/noted all lab results: Yes Results/Orders Orders - ALONZO GOODWIN MD Cta Chest Pe (06/02/25 02:35) Completed Orders - ALONZO GOODWIN MD D-Dimer (06/02/25 01:52) Cta Chest Pe (06/02/25 02:35) Drug Screen, Urine (06/02/25 02:00) Acetaminophen 325mg Tablet (Tylenol Tabl (06/02/25 02:00) Cyclobenzaprine Tablet (Flexeril Tablet) (06/02/25 02:00) Iohexol 350mg/Ml 100ml (Omnipaque 350mg/ (06/02/25 02:33) Medications Received in ER Medications (Trade) Dose Ordered Sig/Chary Route PRN Reason Start Time Stop Time Status Last Admin Dose Admin (Tylenol tablet) 650 mg ONCE ONCE PO 06/02/25 02:00 06/02/25 02:02 DC 06/02/25 02:08 650 MG (Flexeril tablet) 10 mg ONCE ONCE PO 06/02/25 02:00 06/02/25 02:02 DC 06/02/25 02:07 10 MG Vital Signs 06/01/25 06/02/25 06/02/25 06/02/25 22:51 01:51 01:52 03:15 Temp 98.6 98.6 98.6 Pulse 82 70 66 Resp 18 16 18 B/P (MAP) 157/92 129/74 (92) 125/93 (104) Pulse Ox 98 94 96 96 O2 Delivery Room Air* O2 Flow Rate 0 0 0 FiO2 21 21 Laboratory Tests Test 06/01/25 23:09 06/02/25 00:23 06/02/25 02:12 White Blood Count 8.3 Red Blood Count 4.55 Hemoglobin 14.1 Hematocrit 41.3 Mean Corpuscular Volume 90.9 Mean Corpuscular Hemoglobin 30.9 Mean Corpuscular Hemoglobin Concent 34.0 Red Cell Distribution Width 13.0 Platelet Count 336 Mean Platelet Volume 7.0 L Neutrophils (%) (Auto) 52.5 Lymphocytes (%) (Auto) 37.2 Monocytes (%) (Auto) 7.9 Eosinophils (%) (Auto) 2.1 Basophils (%) (Auto) 0.3 Neutrophils # (Auto) 4.3 Lymphocytes # (Auto) 3.1 Monocytes # (Auto) 0.7 Eosinophils # (Auto) 0.2 Basophils # (Auto) 0.0 CBC Comment D-Dimer 0.43 D-Dimer Comment Sodium Level 142 Potassium Level 4.0 Chloride Level 105 Carbon Dioxide Level 30.3 Anion Gap 7 L Blood Urea Nitrogen 13 Creatinine 0.91 H Estimated GFR/1.73 m2 63 BUN/Creatinine Ratio 14.3 Glucose Level 107 H Calcium Level 9.1 Troponin I High Sensitivity 7 7 Pro-B-Type Natriuretic Peptide 93 Albumin 3.7 Chemistry Comments Troponin I High Sens Percent Delta 0 Troponin I Hi Sens Absolute Change 0 Urine Opiates Screen Positive Urine Methadone Screen Negative Urine Fentanyl Screen Negative Urine Barbiturates Screen Negative Urine Phencyclidine Screen Negative Urine Amphetamines Screen Negative Urine Benzodiazepines Screen Negative Urine Cocaine Screen Negative Urine Cannabinoids Screen Negative Drug Screen Comment Re-Evaluation Re-Evaluation : Re-Evaluation: Improved, Unchanged Progress Patient was seen and examined. Patient was given reassurance. CT angiogram was negative for pulmonary embolism. No signs of pneumonia. Patient received Tylenol and Flexeril. Patient's laboratory work did not show any signs of infection normal CBC. No leukocytosis. Chemistry also within normal limits. Troponins x2 were also negative. Tox screen is positive for opiates. Patient is on high dose opiates. D-dimer is normal at 0.43. Patient does have a history of chronic pain. He is on high dose narcotics. That may be contributing to some of her symptoms. Patient was given a prescription of Flexeril and encouraged to apply heat ice. Continuous library monitor interpretation shows normal sinus rhythm heart rate 70s, no ectopy, normal, my interpretation. Pulse oximetry monitor interpretation shows normal oxygenation at 95% room air, normal, my interpretation. EKG/XRAY/CT/US/VASC/MRI EKG : Intepreting Monitor?: Yes Additional Comment [facility] Test Date: 2025-06-01 Test Time: 23:10:46 Pat Name: AUGUSTIN ELLIOTT Department: [facility] Patient ID: [facility]-[id number] Room: Gender: F Supply Analyst: SALONI : 1965 Requested By: MIKA JUAREZ Order Number: [id number] Reading MD: Dr. Alonzo Goodwin Measurements Intervals [place] Rate: 77 P: 61 GA: 162 QRS: 80 QRSD: 94 T: 77 QT: 376 QTc: 426 Interpretive Statements Sinus rhythm Electronically Signed On 06-02-2025 0:19:[address] Alonzo Goodwin Please click the below link to view image of tracing. EKG Date and Time:06/01/25 231 Heart Score: Heart Score Response (Comments) Value History N/A 0 Total 0 Medical Decision Making Additional information obtaine: old records Findings Pleurisy, infection, cardiac etiology, arrhythmias, were considered. Differential Dx:Considerations: Include: Chest wall contusion, Flail chest, Myocardial contusion, Pneumothorax, Pulmonary contusion, Rib fracture, Renal contusion, Splenic fracture, Tension pneumothorax, Other Departure Disposition: 01 HOME / SELF CARE / HOMELESS Impression: Primary Impression: Chest wall pain Additional Impressions: Chronic pain Qualified Codes: G89.4 - Chronic pain syndrome Pleurisy Muscle spasm Condition: Stable Discharge Instructions: Chest Wall Pain Referrals: NO PRIMARY CARE PROVIDER (PCP) Prescriptions Cyclobenzaprine* (Cyclobenzaprine*) 10 Mg Tablet 1 TAB PO HS for muscle spasms for 14 Days, #14 TAB 0 Refills Prov: ALONZO GOODWIN MD 06/02/25 Education Educated: Patient Educated regarding: diagnosis, need for follow up, other Signature Scribe Signature: No scribed Attestation: The note accurately reflects work and decisions made by me.Alonzo Goodwin MD 06/02/25 01:54 ALONZO GOODWIN MD Jun 02, 2025 01:54
[2025-06-02 02:57] LABS: URINE AMPHETAMINE SCREEN NEGATIVE (Neg); URINE BARBITUATE SCREEN NEGATIVE (Neg); URINE BENZODIAZEPINES SCREEN NEGATIVE (Neg); URINE CANNABINOID SCREEN NEGATIVE (Neg); URINE COCAINE SCREEN NEGATIVE (Neg); URINE METHADONE SCREEN NEGATIVE (Neg); URINE OPIATE SCREEN POSITIVE (Neg); URINE PHENCYCLIDINE SCREEN NEGATIVE (Neg)
--- NOTE | 2025-06-02 03:36 | RADIOLOGY REPORT ---
CTA Chest with intravenous contrast INDICATION: SOB COMPARISON: DI CHEST,SINGLE VIEW on DOS: 06/01/25, DI CHEST,SINGLE VIEW on DOS: 08/02/24 TECHNIQUE: Multidetector spiral CTA of the chest was performed of the chest with intravenous contrast. PULMONARY ANGIOGRAPHY PROTOCOL was utilized using a bolus- tracking technique centered on the main pulmonary artery. Axial, coronal and sagittal multiplanar and MIP reformats were performed. Radiation Dose : 1. Chest: CTDI volume is 22.38 mGy. Dose-length product is 835.85 mGy*cm The dose indicators for CT are the volume Computed Tomography (CT) Dose Index (CTDIvol) and the Dose Length Product (DLP), and are measured in units of mGy and mGy-cm, respectively. These indicators are not patient dose, but values generated from the CT scanner acquisition factors. The report includes radiation exposure data for exposures received during this examination. FINDINGS: Pulmonary artery: No pulmonary embolism. Lower neck: Normal thyroid. Lungs: No focal consolidation, pleural effusion or pneumothorax. Heart/Vascular Structures: Normal heart size. No pericardial effusion. Lymph Nodes: No adenopathy Musculoskeletal: No acute osseous abnormality. A ACDF hardware. Soft tissues: Normal. Upper abdomen: Limited portions of the upper abdomen are unremarkable status post cholecystectomy. IMPRESSION: 1. No pulmonary embolism. 2. No acute thoracic finding.
[2025-06-02] MEDS ORDERED: CYCL-1 PO (03:59)
[2025-06-02 04:07] VITALS: BP 155/71; PULSE 67; RESP 18; TEMP 98.6; O2SAT 98
== END 2025-06-02 04:15 | disposition home or self-care (01) ==
LOC: ER 22:20
DX: R07.89 Other chest pain (principal); M62.838 Other muscle spasm; R09.1 Pleurisy; G89.29 Other chronic pain; Z79.899 Other long term (current) drug therapy; Z79.891 Long term (current) use of opiate analgesic; Z98.890 Other specified postprocedural states
CPT/HCPCS: 36415; 71045; 71275; 80048; 80305; 83880; 84484; 85025; 85379; 93005; 99285; Q9967